=== PATIENT | female | born 1945 | race Caucasian/White ===

== ENCOUNTER → 2018-11-28 | Outpatient (REF) | payer MEDICARE ==
[2018-11-28 14:40] LABS: HEPATITIS B CORE ANTIBODY IGM NEGATIVE (NEGATIVE); HEPATITIS C VIRUS ABY INDEX 0.1 INDEX (<0.8)
== END ==
LOC: M LAB REF 12:47
PROVIDERS: ATTEND Internal Medicine
DX: Z11.59 Encounter for screening for other viral diseases (principal)

== ENCOUNTER → 2021-09-20 | Outpatient (REF) | payer MEDICARE | LOC: M LAB REF 17:00 | PROVIDERS: ATTEND Internal Medicine | DX: E83.52 Hypercalcemia (principal) ==

== ENCOUNTER → 2022-09-27 | Outpatient (CLI) | payer MEDICARE | LOC: M WHC 08:43 | PROVIDERS: ATTEND Internal Medicine | DX: Z12.31 Encounter for screening mammogram for malignant neoplasm of breast (principal) ==

== ENCOUNTER → 2023-03-23 | Outpatient (REF) | payer MEDICARE | LOC: M LAB REF 16:03 | PROVIDERS: ATTEND Internal Medicine | DX: E83.52 Hypercalcemia (principal) ==

== ENCOUNTER → 2024-04-25 | Outpatient (CLI) | payer MEDICARE | LOC: M WHC 07:36 | PROVIDERS: ATTEND Internal Medicine | DX: Z12.31 Encounter for screening mammogram for malignant neoplasm of breast (principal); Z13.820 Encounter for screening for osteoporosis; M85.852 Other specified disorders of bone density and structure, left thigh; M85.851 Other specified disorders of bone density and structure, right thigh ==

== ENCOUNTER 2024-12-18 11:17 | Day surgery (SDC) | payer MEDICARE ==
[~2024-12-18] VITALS: Ht 162.6 cm; Wt 65.8 kg
[~2024-12-18 11:17] MED LIST: ATOR40TA75 PO; LEVO50TA5 PO; OLME5TAB24 PO; SERT-141 PO
[2024-12-18] MEDS ORDERED: LIDOCAINE 2% 100 MG/5 ML SDV (FOR ANES.) As Ordered ONE (11:46)
[2024-12-18 12:17] VITALS: TEMP 98.3
[2024-12-18 12:32] VITALS: BP 133/62; O2SAT 96
== END 2024-12-18 12:38 | disposition home or self-care (01) ==
LOC: M OPP 11:17
PROVIDERS: ATTEND Surgery
DX: Z12.11 Encounter for screening for malignant neoplasm of colon (principal); R19.5 Other fecal abnormalities; K63.5 Polyp of colon; K64.0 First degree hemorrhoids; G47.30 Sleep apnea, unspecified; Z88.2 Allergy status to sulfonamides; Z91.013 Allergy to seafood; Z91.048 Other nonmedicinal substance allergy status; Z79.899 Other long term (current) drug therapy; Z87.891 Personal history of nicotine dependence

== ENCOUNTER → 2025-05-07 | Outpatient (CLI) | payer MEDICARE | LOC: M RAD 09:12 | PROVIDERS: ATTEND Internal Medicine | DX: E04.1 Nontoxic single thyroid nodule (principal) ==